=== PATIENT | male | born 1990 | race Caucasian/White ===

== ENCOUNTER 2021-02-06 16:14 | Emergency (ER) | payer OTHER ==
[~2021-02-06] VITALS: Ht 180.3 cm; Wt 81.7 kg
[2021-02-06 16:59] LABS: ABSOLUTE BASOPHILS 0.1 thou/uL (0.0-0.2); ABSOLUTE LYMPHOCYTES 1.7 thou/uL (0.8-5.3); ABSOLUTE MONOCYTES 0.4 thou/uL (0.0-1.2); ABSOLUTE NEUTROPHILS 2.9 thou/uL (1.6-8.1); EOSINOPHILS 0.8 %; HEMATOCRIT 40.1 % (42.0-52.0); HEMOGLOBIN 13.7 gm/dL (14.0-18.0); LYMPHOCYTES 32.7 %; MCH 30.7 pg (26.0-34.0); MCHC 34.3 g/dL (28.0-37.0); MCV 89.6 fL (80.0-100.0); MONOCYTES 8.4 %; MPV 8.6 fl. (7.2-11.1); NUCLEATED RBCS 0 /100WBC; PLATELET COUNT* 193 thou/uL (150-400); POLYS 57.1 %; RBC 4.47 mil/uL (4.50-6.00); RDW-CV 13.1 % (10.5-14.5); WBC 5.1 thou/uL (4.0-11.0)
[2021-02-06] MEDS ORDERED: VISTARIL 25 MG25 M1 PO (17:28)
[2021-02-06 17:30] LABS: CALCIUM 8.1 mg/dL (8.5-10.1); CREATININE 1.1 mg/dL (0.6-1.3); POTASSIUM 3.6 mmol/L (3.5-5.1)
[2021-02-06 17:34] LABS: TOTAL BILIRUBIN 0.5 mg/dL (<0.1-1.0); TOTAL PROTEIN 7.1 g/dL (6.4-8.2)
[2021-02-06 18:00] VITALS: BP 120/79
== END 2021-02-06 18:00 | disposition home or self-care (01) ==
LOC: M.ERS 16:14
PROVIDERS: Physician Assistant
DX: F41.0 Panic disorder [episodic paroxysmal anxiety] (principal)